=== PATIENT | female | born 1995 | race Caucasian/White ===

== ENCOUNTER 2017-04-18 20:56 | Emergency (ER) | payer OTHER ==
[2017-04-18] MEDS ORDERED: ACETAMINOPHEN 500 MG TAB PO ONE (21:11)
--- NOTE | 2017-04-18 21:20 | EDPHY ---
H & P Stated Complaint: lower abd pain- hx of chrons since 1729 Time Seen by Provider: 04/18/17 21:10 HPI/ROS: CHIEF COMPLAINT: Lower abdominal pain HISTORY OF PRESENT ILLNESS: The patient presents to the ED with complaints of moderate to severe lower abdominal pain. The patient's symptoms reportedly began earlier today. She has a history of Crohn's disease and typically has abdominal pain. It typically does not last this long. The patient reports that she was diagnosed with Crohn's approximately a year ago by biopsy. She reportedly underwent an ex lap while traveling abroad in [facility] in 2017 for possible appendicitis. At that point time her appendix was not removed but she was noted to have generalized inflammation which was worked up at [facility]. The patient denies any dysuria. She complains of right greater than left lower abdominal discomfort. She denies vaginal bleeding. She denies additional acute complaints. The patient reports she is on a low dose of daily Naltraxone for treatment of her Crohn's disease. REVIEW OF SYSTEMS: A comprehensive 10 point review of systems is otherwise negative aside from elements mentioned in the history of present illness. Source: Patient Exam Limitations: No limitations - Personal History LMP (Females 10-55): 1-7 Days Ago Current Tetanus/Diphtheria Vaccine: Yes - Medical/Surgical History Hx Asthma: No Hx Chronic Respiratory Disease: No Hx Diabetes: No Hx Cardiac Disease: No Hx Renal Disease: No Hx Cirrhosis: No Hx Alcoholism: No Hx HIV/AIDS: No Hx Splenectomy or Spleen Trauma: No Other PMH: chrons disease - Social History Smoking Status: Never smoked - Physical Exam Exam: General Appearance: Alert, no distress Eyes: Pupils equal and round no pallor or injection ENT, Mouth: Mucous membranes moist Respiratory: There are no retractions, lungs are clear to auscultation Cardiovascular: Tachycardic Gastrointestinal: Tenderness to palpation with rebound and guarding noted in the right lower quadrant, left lower quadrant and mid abdominal area Neurological: 5/5 strength noted all 4 extremities Skin: Warm and dry, no rashes Musculoskeletal: Neck is supple nontender Extremities: symmetrical, full range of motion Constitutional: Initial Vital Signs Temperature (C) 39.3 C H 04/18/17 20:59 Heart Rate 142 H 04/18/17 20:59 Respiratory Rate 18 04/18/17 20:59 Blood Pressure 118/69 04/18/17 20:59 O2 Sat (%) 95 04/18/17 20:59 O2 Delivery Mode Room Air Allergies/Adverse Reactions: azithromycin [From Zithromax] Allergy (Verified 04/18/17 21:02) Home Medications: Medication Instructions Recorded Naltrexone HCl 04/18/17 Medical Decision Making - Diagnostics Imaging Results: Imaging Impressions Abdomen CT 04/18/17 22:05 Impression: 1. Extensive inflammatory process in the right lower quadrant of the abdomen with indistinctness of the mesenteric fat, mesenteric adenopathy, and lack of visualization of the appendix and portions of the cecum and the distal small bowel. There is "tethering" of the distal small bowel, and enteroenteric fistulae cannot be excluded. These features may be a result of a perforated appendicitis, however the possibility of a terminal ileitis and cecitis on the basis of inflammatory bowel disease (i.e. Crohn's) is also mentioned. Neoplastic change is considered less likely, given the patient's young age. 2. Suspect at least a partial small bowel obstruction with the lead point at the level of the aforementioned inflammatory process in the right lower quadrant of the abdomen. 3. [id number] constipation/obstipation. 4. Small amount of free fluid in the pelvic cul-de-sac. Findings were discussed with Jorge Espinoza MD at 22:53, on 04/18/2017. He provided additional history, and indicated the patient was diagnosed in [facility] with Crohn disease one year ago. ED Course/Re-evaluation: The patient presents to the ED with an acute exacerbation of chronic abdominal pain. She reportedly carries a diagnosis of Crohn's disease. When she was initially diagnosed she presented to a hospital in [facility] with right lower quadrant pain. At that point time it was felt she may have appendicitis and was taken for the operating room and found to have inflammation. She did not undergo appendectomy at that point time. The patient has not been managing her symptoms with immunosuppressive medications. She is currently on a low dose of naltraxone for management of her disease. She presents the ED tonight with fever, tachycardia and leukocytosis consistent with SIRS. Given her abdominal tenderness, she was taken for CT scan of the abdomen and pelvis. The patient did have blood cultures x2 obtained. She has no evidence of a urinary tract infection. The patient's CT scan does demonstrate marked inflammation in the right lower quadrant. The case was discussed with Dr. Gonzales from General surgery who will evaluate the patient in the emergency department as a retail wireless sales consultant. Consultation was made with Dr. Elizalde from the hospitalist service who will admit the patient. The patient will be given ceftriaxone and Flagyl per his recommendation. Differential Diagnosis: Differential diagnosis considered includes urinary tract infection, appendicitis , ectopic , perforation, obstruction, intra-abdominal abscess - Data Points Laboratory Results: Laboratory Results 04/18/17 21:20 04/18/17 21:39 04/18/17 04/18/17 04/18/17 22:05 21:39 21:39 WBC RBC Hgb Hct MCV MCH MCHC RDW Plt Count MPV Neut % (Auto) Lymph % (Auto) [place] % (Auto) Eos % (Auto) Baso % (Auto) Nucleat RBC Rel Count Absolute Neuts (auto) Absolute Lymphs (auto) Absolute Monos (auto) Absolute Eos (auto) Absolute Basos (auto) Absolute Nucleated RBC Immature Gran % Immature Gran # VBG Lactic Acid Sodium 133 mEq/L L mEq/L (134-144) Potassium 3.9 mEq/L mEq/L (3.5-5.2) Chloride 100 mEq/L mEq/L (97-110) Carbon Dioxide 19 mEq/l L mEq/l (22-31) Anion Gap 14 mEq/L mEq/L (8-16) BUN 9 mg/dL mg/dL (7-23) Creatinine 0.6 mg/dL mg/dL (0.6-1.0) Estimated GFR > 60 Glucose 114 mg/dL H mg/dL (70-100) Calcium 8.6 mg/dL mg/dL (8.5-10.4) Total Bilirubin Conjugated Bilirubin Unconjugated Bilirubin AST ALT Alkaline Phosphatase Total Protein Albumin Lipase Beta HCG, Qual NEGATIVE Urine Color YELLOW Urine Appearance HAZY Urine pH 5.0 (5.0-7.5) Ur Specific [place] 1.027 (1.002-1.030) Urine Protein 1+ H (NEGATIVE) Urine Ketones TRACE H (NEGATIVE) Urine Blood NEGATIVE (NEGATIVE) Urine Nitrate NEGATIVE (NEGATIVE) Urine Bilirubin NEGATIVE (NEGATIVE) Urine Urobilinogen 2.0 EU H EU (0.2-1.0) Ur Leukocyte Esterase NEGATIVE (NEGATIVE) Urine RBC 1-3 /hpf /hpf (0-3) Urine WBC 1-3 /hpf /hpf (0-3) Ur Epithelial Cells TRACE /lpf /lpf (NONE-1+) Urine Bacteria 1+ /hpf H /hpf (NONE SEEN) Urine Mucus 3+ /lpf H /lpf (NONE-1+) Urine Glucose NEGATIVE (NEGATIVE) 04/18/17 04/18/17 04/18/17 21:20 21:20 21:20 WBC RBC Hgb Hct MCV MCH MCHC RDW Plt Count MPV Neut % (Auto) Lymph % (Auto) [place] % (Auto) Eos % (Auto) Baso % (Auto) Nucleat RBC Rel Count Absolute Neuts (auto) Absolute Lymphs (auto) Absolute Monos (auto) Absolute Eos (auto) Absolute Basos (auto) Absolute Nucleated RBC Immature Gran % Immature Gran # VBG Lactic Acid 1.6 mmol/L mmol/L (0.7-2.1) Sodium REJ Potassium Not Reported Chloride Not Reported Carbon Dioxide Not Reported Anion Gap Not Reported BUN Not Reported Creatinine Not Reported Estimated GFR Not Reported Glucose Not Reported Calcium Not Reported Total Bilirubin Not Reported Conjugated Bilirubin Not Reported Unconjugated Bilirubin Not Reported AST Not Reported ALT Not Reported Alkaline Phosphatase Not Reported Total Protein REJ Albumin Not Reported Lipase REJ Beta HCG, Qual REJ Urine Color Urine Appearance Urine pH Ur Specific [place] Urine Protein Urine Ketones Urine Blood Urine Nitrate Urine Bilirubin Urine Urobilinogen Ur Leukocyte Esterase Urine RBC Urine WBC Ur Epithelial Cells Urine Bacteria Urine Mucus Urine Glucose 04/18/17 21:20 WBC 15.88 10^3/uL H 10^3/uL (3.80-9.50) RBC 4.21 10^6/uL 10^6/uL (4.18-5.33) Hgb 12.3 g/dL L g/dL (12.6-16.3) Hct 37.3 % L % (38.0-47.0) MCV 88.6 fL fL (81.5-99.8) MCH 29.2 pg pg (27.9-34.1) MCHC 33.0 g/dL g/dL (32.4-36.7) RDW 13.2 % % (11.5-15.2) Plt Count 392 10^3/uL 10^3/uL (150-400) MPV 9.1 fL fL (8.7-11.7) Neut % (Auto) 90.9 % H % (39.3-74.2) Lymph % (Auto) 4.6 % L % (15.0-45.0) Roane % (Auto) 3.5 % L % (4.5-13.0) Eos % (Auto) 0.0 % L % (0.6-7.6) Baso % (Auto) 0.4 % % (0.3-1.7) Nucleat RBC Rel Count 0.0 % % (0.0-0.2) Absolute Neuts (auto) 14.45 10^3/uL H 10^3/uL (1.70-6.50) Absolute Lymphs (auto) 0.73 10^3/uL L 10^3/uL (1.00-3.00) Absolute Monos (auto) 0.55 10^3/uL 10^3/uL (0.30-0.80) Absolute Eos (auto) 0.00 10^3/uL L 10^3/uL (0.03-0.40) Absolute Basos (auto) 0.06 10^3/uL 10^3/uL (0.02-0.10) Absolute Nucleated RBC 0.00 10^3/uL 10^3/uL (0-0.01) Immature Gran % 0.6 % % (0.0-1.1) Immature Gran # 0.09 10^3/uL 10^3/uL (0.00-0.10) VBG Lactic Acid Sodium Potassium Chloride Carbon Dioxide Anion Gap BUN Creatinine Estimated GFR Glucose Calcium Total Bilirubin Conjugated Bilirubin Unconjugated Bilirubin AST ALT Alkaline Phosphatase Total Protein Albumin Lipase Beta HCG, Qual Urine Color Urine Appearance Urine pH Ur Specific [place] Urine Protein Urine Ketones Urine Blood Urine Nitrate Urine Bilirubin Urine Urobilinogen Ur Leukocyte Esterase Urine RBC Urine WBC Ur Epithelial Cells Urine Bacteria Urine Mucus Urine Glucose Medications Given: Discontinued Medications Acetaminophen (Tylenol) 1,000 mg PO EDNOW ONE Stop: 04/18/17 21:12 Last Admin: 04/18/17 21:14 Dose: 1,000 mg Sodium Chloride (Ns) 1,000 mls @ 0 mls/hr IV EDNOW ONE; Wide Open PRN Reason: Protocol Stop: 04/18/17 22:06 Last Admin: 04/18/17 22:30 Dose: 1,000 mls Sodium Chloride (Ns) 1,000 mls @ 0 mls/hr IV EDNOW ONE; Wide Open PRN Reason: Protocol Stop: 04/18/17 22:06 Last Admin: 04/18/17 22:30 Dose: 1,000 mls Departure - Departure Disposition: [facility] Inpatient Acute Clinical Impression: Abdominal pain, Sepsis, Crohns disease Referrals: MD TIANNA [Other] - As per Instructions
[2017-04-18 21:31] LABS: % IMMATURE GRANULYOCYTES 0.6 % (0.0-1.1); ABSOLUTE IMMATURE GRANULOCYTES 0.09 10^3/uL (0.00-0.10); ADD DIFF? NO; ADD MORPH? NO; ADD SCAN? NO; ATYPICAL LYMPHOCYTE FLAG 10 (0-99); FRAGMENT RBC FLAG 0 (0-99); HEMATOCRIT 37.3 % (38.0-47.0); HEMOGLOBIN 12.3 g/dL (12.6-16.3); LEFT SHIFT FLG 10 (0-99); LIPEMIA HEMOLYSIS FLAG 80 (0-99); MEAN CELL HEMOGLOBIN 29.2 pg (27.9-34.1); MEAN CELL VOLUME 88.6 fL (81.5-99.8); MEAN PLATELET VOLUME 9.1 fL (8.7-11.7); PLATELET CLUMPS FLAG 0 (0-99); PLATELET COUNT 392 10^3/uL (150-400); RED BLOOD CELL COUNT 4.21 10^6/uL (4.18-5.33); RED CELL DISTRIBUTION WIDTH 13.2 % (11.5-15.2)
[2017-04-18 22:02] LABS: ANION GAP 14 mEq/L (8-16); CALCIUM 8.6 mg/dL (8.5-10.4); CARBON DIOXIDE 19 mEq/l (22-31); CHLORIDE 100 mEq/L (97-110); CREATININE 0.6 mg/dL (0.6-1.0); GLOMERULAR FILTRATION RATE > 60; GLUCOSE 114 mg/dL (70-100); POTASSIUM 3.9 mEq/L (3.5-5.2); SODIUM 133 mEq/L (134-144)
[2017-04-18] MEDS ORDERED: NS 1,000 ML IV ONE ×2 (22:05)
[2017-04-18] MEDS ORDERED: IOPAMIDOL (ISOVUE-300) 100 ML BTL ONE (22:07)
[2017-04-18 22:24] LABS: COLOR YELLOW; LEUKOCYTE ESTERASE,URINE NEGATIVE (NEGATIVE); NITRITE,URINE NEGATIVE (NEGATIVE)
[2017-04-18 22:30] LABS: BACTERIA 1+ /hpf (NONE SEEN); MUCUS 3+ /lpf (NONE-1+)
[2017-04-18] MEDS ORDERED: ACETAMINOPHEN 325 MG TAB PO PRN (23:09)
[2017-04-18] MEDS ORDERED: ONDANSETRON 4 MG/2 ML VIAL IVP PRN (23:09)
[2017-04-18] MEDS ORDERED: ONDANSETRON DISINTEGRATING 4 MG TAB PO PRN (23:09)
[2017-04-18] MEDS ORDERED: oxyCODONE IR 5 MG TAB PO PRN (23:09)
[2017-04-18] MEDS ORDERED: NS 1,000 ML IV SCH (23:15)
--- NOTE | 2017-04-18 23:36 | PDGENHP ---
History and Physical - Chief Complaint Abdominal pain - History of Present Illness 21 yo F w/ Chron's disease presents with abdominal pain. Per patient, she was in her usual state of health until about 5 PM on the day of presentation. At this point she began to develop quite severe RLQ, so she decided to come to the ED. In the ED she was noted to be tachycardic and febrile with CT evidence of RLQ inflammatory process and likely SBO. Patient was diagnosed with Chron's in June at [place] but refused standard treatment. She instead went to an integrative medicine practitioner who prescribed naltrexone therapy. History Information - Allergies/Home Medication List Allergies/Adverse Reactions: azithromycin [From Zithromax] Allergy (Verified 04/18/17 21:02) Home Medications: Naltrexone HCl 04/18/17 [Last Taken Unknown] I have personally reviewed and updated: family history, medical history - Past Medical History Additional medical history: Chorn's disease - Family History Additional family history: Asked, patient denies knowledge of any family history - Social History Smoking Status: Never smoked Review of Systems Review of Systems: ROS: 10pt was reviewed & negative except for what was stated in HPI & below Physical Exam Physical Exam: Temp Pulse Resp BP Pulse Ox 39.3 C H 109 H 16 118/69 93 04/18/17 20:59 04/18/17 22:50 04/18/17 22:50 04/18/17 22:50 04/18/17 22:50 Constitutional: no apparent distress, appears nourished Eyes: PERRL, EOMI Ears, Nose, Mouth, Throat: moist mucous membranes, no oral mucosal ulcers Cardiovascular: no murmur, rub, or gallop, tachycardia Respiratory: no respiratory distress, no rales or rhonchi Gastrointestinal: normoactive bowel sounds, tenderness (Diffuse but worse in RLQ ), No guarding, No rebound Skin: warm, normal color Musculoskeletal: full muscle strength, no muscle tenderness Neurologic: AAOx3, CN II-XII Intact Psychiatric: interacting appropriately, not anxious Lab Data & Imaging Review 04/18/17 21:20 04/18/17 21:39 WBC 15.88 10^3/uL (3.80-9.50) H 04/18/17 21:20 RBC 4.21 10^6/uL (4.18-5.33) 04/18/17 21:20 Hgb 12.3 g/dL (12.6-16.3) L 04/18/17 21:20 Hct 37.3 % (38.0-47.0) L 04/18/17 21:20 MCV 88.6 fL (81.5-99.8) 04/18/17 21:20 MCH 29.2 pg (27.9-34.1) 04/18/17 21:20 MCHC 33.0 g/dL (32.4-36.7) 04/18/17 21:20 RDW 13.2 % (11.5-15.2) 04/18/17 21:20 Plt Count 392 10^3/uL (150-400) 04/18/17 21:20 MPV 9.1 fL (8.7-11.7) 04/18/17 21:20 Neut % (Auto) 90.9 % (39.3-74.2) H 04/18/17 21:20 Lymph % (Auto) 4.6 % (15.0-45.0) L 04/18/17 21:20 [place] % (Auto) 3.5 % (4.5-13.0) L 04/18/17 21:20 Eos % (Auto) 0.0 % (0.6-7.6) L 04/18/17 21:20 Baso % (Auto) 0.4 % (0.3-1.7) 04/18/17 21:20 Nucleat RBC Rel Count 0.0 % (0.0-0.2) 04/18/17 21:20 Absolute Neuts (auto) 14.45 10^3/uL (1.70-6.50) H 04/18/17 21:20 Absolute Lymphs (auto) 0.73 10^3/uL (1.00-3.00) L 04/18/17 21:20 Absolute Monos (auto) 0.55 10^3/uL (0.30-0.80) 04/18/17 21:20 Absolute Eos (auto) 0.00 10^3/uL (0.03-0.40) L 04/18/17 21:20 Absolute Basos (auto) 0.06 10^3/uL (0.02-0.10) 04/18/17 21:20 Absolute Nucleated RBC 0.00 10^3/uL (0-0.01) 04/18/17 21:20 Immature Gran % 0.6 % (0.0-1.1) 04/18/17 21:20 Immature Gran # 0.09 10^3/uL (0.00-0.10) 04/18/17 21:20 VBG Lactic Acid 1.6 mmol/L (0.7-2.1) 04/18/17 21:20 Sodium 133 mEq/L (134-144) L 04/18/17 21:39 Potassium 3.9 mEq/L (3.5-5.2) 04/18/17 21:39 Chloride 100 mEq/L (97-110) 04/18/17 21:39 Carbon Dioxide 19 mEq/l (22-31) L 04/18/17 21:39 Anion Gap 14 mEq/L (8-16) 04/18/17 21:39 BUN 9 mg/dL (7-23) 04/18/17 21:39 Creatinine 0.6 mg/dL (0.6-1.0) 04/18/17 21:39 Estimated GFR > 60 04/18/17 21:39 Glucose 114 mg/dL (70-100) H 04/18/17 21:39 Calcium 8.6 mg/dL (8.5-10.4) 04/18/17 21:39 Total Bilirubin Not Reported 04/18/17 21:20 Conjugated Bilirubin Not Reported 04/18/17 21:20 Unconjugated Bilirubin Not Reported 04/18/17 21:20 AST Not Reported 04/18/17 21:20 ALT Not Reported 04/18/17 21:20 Alkaline Phosphatase Not Reported 04/18/17 21:20 Total Protein REJ 04/18/17 21:20 Albumin Not Reported 04/18/17 21:20 Lipase REJ 04/18/17 21:20 Beta HCG, Qual NEGATIVE 04/18/17 21:39 Urine Color YELLOW 04/18/17 22:05 Urine Appearance HAZY 04/18/17 22:05 Urine pH 5.0 (5.0-7.5) 04/18/17 22:05 Ur Specific [place] 1.027 (1.002-1.030) 04/18/17 22:05 Urine Protein 1+ (NEGATIVE) H 04/18/17 22:05 Urine Ketones TRACE (NEGATIVE) H 04/18/17 22:05 Urine Blood NEGATIVE (NEGATIVE) 04/18/17 22:05 Urine Nitrate NEGATIVE (NEGATIVE) 04/18/17 22:05 Urine Bilirubin NEGATIVE (NEGATIVE) 04/18/17 22:05 Urine Urobilinogen 2.0 EU (0.2-1.0) H 04/18/17 22:05 Ur Leukocyte Esterase NEGATIVE (NEGATIVE) 04/18/17 22:05 Urine RBC 1-3 /hpf (0-3) 04/18/17 22:05 Urine WBC 1-3 /hpf (0-3) 04/18/17 22:05 Ur Epithelial Cells TRACE /lpf (NONE-1+) 04/18/17: Urine Bacteria 1+ /hpf (NONE SEEN) H 04/18/17 22:05 Urine Mucus 3+ /lpf (NONE-1+) H 04/18/17 22:05 Urine Glucose NEGATIVE (NEGATIVE) 04/18/17 22:05 Imaging Review: CT A/P with IV contrast notable for extensive RLQ inflammatory process, possible entero-enteric fistula, and at least partial SBO. Assessment & Plan Assessment: 21 yo F w/ Chron's disease presents with sepsis 2/2 RLQ inflammatory process. Plan: 1. Sepsis 2/2 RLQ inflammatory process - Tachycardic, febrile, with WBC of 15 (3 /4 SIRS) on admission 2/2 extensive RLQ inflammatory process. Unclear if this represents Chron's flare or perforated appendicitis, per radiology. Additionally , situation complicated by possible entero-enteric fistula and at least partial SBO. Lactate 1.6, Beta HCG negative. - CTX, flagyl for empiric intra-abdominal coverage - Surgery service consulted, appreciate assistance - GI consult in the morning 2. Possible SBO - As noted on admission CT with only IV contrast. Patient relatively asymptomatic from this so doubt true obstruction. - Per discussion with Dr. Gonzales, will order gastrografin small bowel follow through for further evaluation - Maintain NPO, mIVF, pain control 3. IBD with possible acute flare - Diagnosed with Chron's in June of this year at [place]. She has been taking Naltrexone for this from an integrative medicine practitioner. - Will hold off on steroids for now noting diagnostic uncertainty - Check LFTs - GI consult Diet - NPO Code - Full Ppx - Low risk Dispo - Admit to inpatient status noting sepsis and need for IV antibiotics, further diagnostic work-up, as well as surgical and GI consultations.
[2017-04-19 00:03] LABS: ALBUMIN 3.2 g/dL (3.5-5.0); BILIRUBIN,TOTAL 0.8 mg/dL (0.1-1.4); BILIRUBIN-CONJUGATED 0.3 mg/dL (0.0-0.5); BILIRUBIN-UNCONJUGATED 0.5 mg/dL (0.0-1.1)
[2017-04-19 01:21] VITALS: BP 129/85; PULSE 112; RESP 18; TEMP 99.1; O2SAT 95
--- NOTE | 2017-04-19 02:20 | GCON ---
[f rep st] CONSULTATION REASON FOR CONSULTATION: Abdominal pain and abnormal CT scan. HISTORY: The patient is a 21-year-old white female who spent last February through May in [facility]. She had a persistent abdominal discomfort. It was originally diagnosed as a gastritis. In May, the pain became worse. Based on a sonogram, she underwent a diagnostic laparoscopy, which diagnosed ( due to fat wrapping) with Crohn's. She had a CT after that. She had come back to the [facility] and had a colonoscopy and MRI. Initially, there was some question about the biopsy, but it was finally felt to show both acute and chronic inflammation consistent with Crohn's. She has pursued alternative care. She does have consistent abdominal pain, mainly in the right lower quadrant, although she was pain free for most of the summer. She has used a diet which excludes gluten, dairy, grains and sugar. That diet seems to help for her, somewhat. Typically on a day, the pain lasts 20-30 seconds, and then goes away for 10 seconds to hours, and then returns. Today, the pain lasted a longer time frame. She describes it as "contusion" or tight, and occasionally sharp and crampy. There is no effect upon the pain with eating or moving her bowels. Not moving actively seems to be the most comfortable position for her. Today , she had oatmeal and coffee for breakfast, a meat chili and Red Bull for lunch. She was not aware of any fevers when she presented to the emergency room. She came to the emergency room and a CAT scan shows an inflammatory mass in the right lower quadrant. Also shows dilated small bowel loops. It is difficult to sort out exactly what is going on based on the physical findings. SOCIAL HISTORY: She does not smoke. She drinks 2-3 drinks a week, usually red wine or beer. ALLERGIES: She is allergic to Zithromax, as manifested by generalized swelling. MEDICATIONS: She does take a medication which she feels helps somewhat, but she is unsure of that medication at this time. PAST MEDICAL HISTORY: The only surgery has been the diagnostic laparoscopy last year. There is no history of rheumatic fever, tuberculosis, hepatitis, transfusions. REVIEW OF SYSTEMS: Her 1st Pap smear was several months ago and normal. Her last menstrual period stopped last Saturday, it was normal for her. No limits in activities. No history of steroid use. FAMILY HISTORY: Her mother is 57, her father is 63, both are healthy. She has an older sister who is 25, who is healthy. There was no bleeding disorders, clotting disorders, or difficulty with anesthesia in the patient or the family. No index relatives with inflammatory bowel disease. PHYSICAL EXAMINATION: GENERAL: She is awake and alert, and can sit up easily. VITAL SIGNS: On admission, her temperature was 39.3, blood pressure 118/69, heart rate 109. LYMPH NODES: There is no cervical, supraclavicular, axillary or inguinal lymphadenopathy. BACK: Unremarkable. LUNGS: Clear to auscultation. NECK: Supple and nontender. Thyroid is not enlarged. CARDIAC: Shows S1, S2 to be normal. Normal split of S2 without murmurs, rubs, or gallops. ABDOMEN: Distended with hypoactive bowel sounds. She is tender in the right upper quadrant at 5 with cough. Psoas and obturator signs are both mildly positive. To palpation, left upper quadrant is 5, the mid abdomen is 4, left lower quadrant is 3, epigastrium is 6, periumbilical region is 5, suprapubic region is 4, right upper quadrant is 5, right mid abdomen is 5, right lower quadrant is 5, and over the right iliac crest is 4. LABORATORY: Her white count is 15,800, there are 90.9% neutrophils. Hematocrit is 37. Lactate is 1.6. Sodium is 133, glucose is 114. Beta hCG is negative. IMPRESSION: It is unclear from the history and CAT scan exactly what is going on, but at this point, I feel she probably does not have appendicitis. Note is made her appendix was not removed at the surgery in [facility]. I think more probably, she has a flare of her Crohn disease. I have recommended to the hospitalist that we start her on antibiotics and consider a Gastrografin small- bowel follow-through in the morning. Her admission was complicated by the fact that we just discovered that she is a [facility] patient, and we are still trying to clear this admission with the [facility] service. /[id number]/MODL MTDD
== END 2017-04-19 01:34 | disposition short-term general hospital (02) ==
LOC: UNDOADMIN 23:09
DX: A41.9 Sepsis, unspecified organism (principal); K50.90 Crohn's disease, unspecified, without complications
CPT/HCPCS: J0696; Q9967